=== PATIENT | male | born 1995 | race Caucasian/White ===

== ENCOUNTER 2024-06-26 11:16 | Emergency (ER) | payer SELFPAY ==
[2024-06-26] MEDS ORDERED: ACETAMINOPHEN 325 MG TABLET (FP) ONE (11:29)
[2024-06-26] MEDS ORDERED: DIPHTH,PERTUSS(ACELL),TET 0.5 ML DISP.SYRIN IM ONE (11:29)
[2024-06-26] MEDS: ACETAMINOPHEN 325 MG TABLET (FP) PO ONE (11:35)
[2024-06-26] MEDS: DIPHTH,PERTUSS(ACELL),TET 0.5 ML DISP.SYRIN IM ONE (11:37)
[2024-06-26 11:40] VITALS: BP 143/89; PULSE 87; RESP 18; TEMP 98.6; BMI 23.3
[2024-06-26] MEDS ORDERED: AMOX TR/POT CLAV 875MG/125MG TABLETS (FP) ONE (13:14)
[2024-06-26] MEDS: AMOX TR/POT CLAV 875MG/125MG TABLETS (FP) PO ONE (13:15)
== END 2024-06-26 13:25 | disposition home or self-care (01) ==
LOC: FER 11:16
PROC: 3E0234Z Introduction of Serum, Toxoid and Vaccine into Muscle, Percutaneous Approach (ICD-10-PCS; principal; 2024-06-26)
DX: S62.635B Displaced fracture of distal phalanx of left ring finger, initial encounter for open fracture (principal); W26.8XXA Contact with other sharp object(s), not elsewhere classified, initial encounter; Z23 Encounter for immunization
CPT/HCPCS: 73130-TC-LT-FY; 90715; 99284-25

== ENCOUNTER 2024-07-06 11:29 | Emergency (ER) | payer SELFPAY ==
[2024-07-06 12:27] VITALS: BP 126/87; PULSE 84; RESP 16; TEMP 99.1; BMI 21.6
== END 2024-07-06 12:31 | disposition home or self-care (01) ==
LOC: FER 11:29
DX: M79.645 Pain in left finger(s) (principal)
CPT/HCPCS: 99283-25